=== PATIENT | female | born 1985 | race African-American/Black ===

== ENCOUNTER 2019-06-01 12:52 | Day surgery (SDC) | payer BC ==
[~2019-06-01 12:52] MED LIST: LIDOCAINE 1%/EPINEPHRINE INJ 20 ML VIAL ONE; METHYLERGONOVINE MALEATE INJ/PF 0.2 MG/1 ML AMPULE ONE
[2019-06-01] MEDS ORDERED: DOXYCYCLINE HYCLATE 100 MG in DEXTROSE 5%-WATER 250 ML IV PRN (13:02)
[2019-06-01 13:47] LABS: HEMATOCRIT 33.2 % (36.0-47.0); HEMOGLOBIN 11.1 g/dL (12.0-15.5); MEAN CORPUSCULAR HEMOGLOBIN 24.1 pg (27.0-33.4); MEAN CORPUSCULAR HGB CONC 33.4 g/dL (32.0-36.0); MEAN CORPUSCULAR VOLUME 72 fl (80-97); PLATELET COUNT 266 10^3/uL (150-450); RED CELL DISTRIBUTION WIDTH 15.8 % (11.5-14.0); WHITE BLOOD COUNT 4.7 10^3/uL (4.0-10.5)
[2019-06-01] MEDS ORDERED: MIDAZOLAM 2 MG/2 ML INJ ONE (13:49)
[2019-06-01] MEDS ORDERED: FENTANYL CITRATE INJ/PF 100 MCG/2 ML AMPUL ONE (13:49)
[2019-06-01] MEDS ORDERED: PROPOFOL INJ 200 MG/20 ML VIAL IV ONE (13:50)
[2019-06-01] MEDS ORDERED: METHYLERGONOVINE MALEATE INJ/PF 0.2 MG/1 ML AMPULE ONE (13:57)
[2019-06-01] MEDS ORDERED: MISOPROSTOL 0.2 MG TABLET ONE (14:48)
[2019-06-01] MEDS ORDERED: ONDANSETRON HCL INJ/PF 4 MG/2 ML SDV ONE (14:59)
[2019-06-01] MEDS ORDERED: LIDOCAINE 2% INJ-PF (20 MG/ML) 2 ML AMPUL ONE (14:59)
[2019-06-01] MEDS ORDERED: DEXAMETHASONE SOD PHOSPHATE INJ 4 MG/1 ML VIAL ONE (14:59)
[2019-06-01] MEDS ORDERED: FENTANYL CITRATE INJ/PF 100 MCG/2 ML AMPUL IV PRN ×3 (15:03)
[2019-06-01] MEDS ORDERED: MEPERIDINE HCL/PF INJ 25 MG/1 ML DISP.SYRIN IV PRN (15:03)
[2019-06-01] MEDS ORDERED: OXYCODONE-ACETAMINOPHEN 5-325 MG TABLET PO PRN ×4 (15:03→15:29)
[2019-06-01] MEDS ORDERED: DIPHENHYDRAMINE HCL 50 MG/ML VIAL IV PRN (15:03)
[2019-06-01] MEDS ORDERED: PROMETHAZINE HCL INJ 25 MG/1 ML VIAL IV PRN ×2 (15:03)
[2019-06-01] MEDS ORDERED: RINGERS SOLUTION,LACTATED 1,000 ML IV PRN (15:27)
[2019-06-01] MEDS ORDERED: HYDROMORPHONE HCL INJ/PF 2 MG/ML AMPULE IV PRN (15:29)
[2019-06-01] MEDS ORDERED: IBUPROFEN 800 MG TABLET PO PRN (15:29)
[2019-06-01] MEDS ORDERED: ONDANSETRON HCL INJ/PF 4 MG/2 ML SDV IV PRN (15:30)
[2019-06-01] MEDS ORDERED: IBUPROFEN 800 MG TABLET ONE (16:01)
[2019-06-01] MEDS ORDERED: OXYCODONE-ACETAMINOPHEN 5-325 MG TABLET ONE (16:07)
[2019-06-01 17:27] LABS: ABSOLUTE LYMPHOCYTES (AUTO) 0.7 10^3/uL (0.5-4.7); ABSOLUTE MONOCYTES (AUTO) 0.1 10^3/uL (0.1-1.4); ABSOLUTE NEUT (AUTO) 4.9 10^3/uL (1.7-8.2); BASOPHILS % (AUTO) 0.2 % (0-2); EOSINOPHILS % (AUTO) 0.1 % (0-6); HEMATOCRIT 31.6 % (36.0-47.0); HEMOGLOBIN 10.7 g/dL (12.0-15.5); LYMPHOCYTES % (AUTO) 12.2 % (13-45); MEAN CORPUSCULAR HEMOGLOBIN 24.3 pg (27.0-33.4); MEAN CORPUSCULAR HGB CONC 33.9 g/dL (32.0-36.0); MEAN CORPUSCULAR VOLUME 72 fl (80-97); MONOCYTES % (AUTO) 1.9 % (3-13); PLATELET COUNT 253 10^3/uL (150-450); RED BLOOD COUNT 4.41 10^6/uL (3.72-5.28); RED CELL DISTRIBUTION WIDTH 15.8 % (11.5-14.0); SEGMENTED NEUTROPHILS % (AUTO) 85.6 % (42-78); TOTAL CELLS COUNTED % (AUTO) 100 %; WHITE BLOOD COUNT 5.8 10^3/uL (4.0-10.5)
[2019-06-01 18:00] VITALS: BP 102/61
--- NOTE | 2019-06-01 23:19 | Operative Report ---
Operative Report DATE OF SURGERY: 06/01/19 PREOPERATIVE DIAGNOSIS: Missed at 9+1ega, (recent Heterotopic s/p salpingectomy) POSTOPERATIVE DIAGNOSIS: SUSANA SURGEON: MARGARET MONTENEGRO ANESTHESIA: GA TISSUE REMOVED OR ALTERED: products of conception COMPLICATIONS: very boggy uterus increased blood loss and poor uterine tone ESTIMATED BLOOD LOSS: 250ml PROCEDURE: Anesthesia: [] Anesthesia: GA EBL: [] IVF: [] UOP: [] Specimens: Products of conception Complications: None Findings: [] Indications: [] Procedure: The patient was taken to the Operating Room where general anesthesia was obtained without difficulty. She was prepped and draped in the normal sterile fashion in the dorsal lithotomy position. Exam under anesthesia was performed and noted above. A speculum was placed in the vagina. The anterior cervix was grasped with a single-tooth tenaculum and the uterus sounded to [] after paracervical block was performed with 8 mL of 1% lidocaine with epinephrine. The cervix was noted to be closed at the beginning of the procedure. Sequential dilators were then used to dilate the cervix to accommodate the the 8 mm suction curet curved. The 8 mm curved suction curet was gently advanced in the usual fashion and good return of tissue. The suction device was then activated and the curet rotated to clear the uterus of the products of conception. A sharp curettage was then performed. The suction device was then gently reintroduced and activated and the curet rotated to clear the uterus of conception which was loosened with recent sharp curettage. The sharp curettage was then performed again until a gritty texture was noted and the cavity was felt to be empty of further tissue. At this time there was minimal bleeding noted from the cervix. All instruments were removed from the patient's cervix and vagina. Silver nitrate was applied to the tenaculum site for hemostasis. Sponge lap needle and instrument counts are correct 2. Doxycycline 100 mg IV was given perioperatively. Cytotec 1000mcg were placed CO. The patient tolerated the procedure well and was taken to the recovery area awake and in stable condition. The patient was discharged home with pain medications as well as by mouth Methergine.
== END 2019-06-01 18:10 | disposition home or self-care (01) ==
LOC: OROUT 12:52
PROVIDERS: ATTEND Student in an Organized Health Care Education/Training Program
DX: O02.1 Missed abortion (principal); N85.8 Other specified noninflammatory disorders of uterus; D64.9 Anemia, unspecified; E05.90 Thyrotoxicosis, unspecified without thyrotoxic crisis or storm; Z91.040 Latex allergy status
CPT/HCPCS: 36415; 84702; 85027; 88305 ×2; 01965; 59820; J2250; J1100; J3490 ×3; J3010; J2210; J2405; J7060; J2704; 1965

== ENCOUNTER 2020-12-03 21:04 | Outpatient (CLI) | payer BC ==
[2020-12-03 22:10] LABS: APPEARANCE,URINE SLIGHTLY-CLOUDY; BILIRUBIN,URINE NEGATIVE (NEGATIVE); COLOR,URINE YELLOW; GLUCOSE, URINE NEGATIVE (NEGATIVE); KETONES,URINE NEGATIVE (NEGATIVE); LEUKOCYTE ESTERASE,URINE NEGATIVE (NEGATIVE); NITRITE,URINE NEGATIVE (NEGATIVE); PROTEIN,URINE NEGATIVE (NEGATIVE); URINE SPECIFIC GRAVITY 1.015; UROBILINOGEN,URINE NEGATIVE mg/dL (<2.0)
[2020-12-03 22:24] LABS: URINE AMPHETAMINES SCREEN NEGATIVE; URINE BARBITURATES SCREEN NEGATIVE; URINE BENZODIAZEPINES SCREEN NEGATIVE; URINE COCAINE SCREEN NEGATIVE; URINE MARIJUANA (THC) SCREEN NEGATIVE; URINE METHADONE SCREEN NEGATIVE; URINE PHENCYCLIDINE SCREEN NEGATIVE
--- NOTE | 2020-12-03 22:34 | Non Stress Test Report ---
Non Stress Test Datetime Report Generated by CPN: 12/03/2020 22:34 DEMOGRAPHIC EGA NST: 36.6 INDICATION Indication for Study (NST) Other: LC- vaginal spotting VITAL SIGNS Temperature - NST: 98.0 Pulse - NST: 79 NBPSYS NST: 134 NBPDIA NST: 88 MONITORING Monitor Explained: Monitor Explained; Test Explained; Patient Verbalized Understanding Time on Monitor: 12/03/2020 21:13 Time off Monitor: 12/03/2020 22:29 NST Duration: 76 NST INTERVENTIONS NST Interventions: PO Hydration Physician Notified NST: Dr. Manoj BABY A: [id number] BABY A Movement : Present Contraction Frequency : irregular FHR Baseline : 135 Accelerations : 15X15 Decelerations : None Variability : Moderate 6-25bpm NST Review: Meets Criteria for Reactive NST NST Review and Verified By : Jamaal Russell RN NST Results: Reactive NST REPORT Report Trigger: Send Report
== END 2020-12-03 22:33 | disposition home or self-care (01) ==
LOC: LC 21:04
PROVIDERS: ATTEND Obstetrics & Gynecology
DX: O26.853 Spotting complicating pregnancy, third trimester (principal); O47.03 False labor before 37 completed weeks of gestation, third trimester; O09.523 Supervision of elderly multigravida, third trimester; Z3A.36 36 weeks gestation of pregnancy; Z91.040 Latex allergy status
CPT/HCPCS: 59025; 80307; 81005